=== PATIENT | male | born 1980 | race African-American/Black ===

== ENCOUNTER 2020-10-14 21:10 | Emergency (ER) | payer SELFPAY ==
[2020-10-14] MEDS ORDERED: Lidocaine 1% PF 5 ML VIAL ONE (21:28)
== END 2020-10-14 22:28 | disposition home or self-care (01) ==
LOC: ERS 21:10
DX: S63.617A Unspecified sprain of left little finger, initial encounter (principal); W26.9XXA Contact with unspecified sharp object(s), initial encounter
CPT/HCPCS: 12001

== ENCOUNTER 2020-10-22 12:04 | Day surgery (SDC) | payer OTHER ==
[2020-10-21 13:22] VITALS: BMI 29.2
[2020-10-22] MEDS ORDERED: Betamet Acet/Betamet Na Ph 30 MG/5 ML VIAL ONE (12:55)
[2020-10-22] MEDS ORDERED: Bacitracin Zinc Ointment 30 gm TUBE ONE (12:55)
[2020-10-22] MEDS ORDERED: Bupivacaine PF 0.5% 30 ML VIAL ONE (12:55)
[2020-10-22] MEDS ORDERED: Fentanyl 100 MCG/2 ML VIAL ONE ×4 (12:59→19:06)
[2020-10-22] MEDS ORDERED: Dexamethasone 20 MG/5 ML VIAL ONE (13:35)
[2020-10-22] MEDS ORDERED: Lidocaine 1% PF 5 ML VIAL ONE (13:35)
[2020-10-22] MEDS ORDERED: PROPOFOL 200 MG/20 ML VIAL ONE (13:35)
[2020-10-22] MEDS ORDERED: Ketorolac Tromethamine 30 MG/ML VIAL ONE ×2 (13:35→18:14)
[2020-10-22] MEDS ORDERED: Ondansetron PF 4 MG/2 ML Vial ONE ×2 (13:35→20:12)
[2020-10-22] MEDS ORDERED: Ondansetron HCl/PF 4 MG/2 ML Vial IVP PRN (18:17)
[2020-10-22] MEDS ORDERED: Promethazine HCl 25 MG/ML VIAL IVPB PRN (18:17)
[2020-10-22] MEDS ORDERED: HYDROmorphone 2 MG/ML VIAL SLOW IVP PRN (18:17)
[2020-10-22] MEDS ORDERED: Meperidine HCl/PF 25 MG/ML VIAL SLOW IVP PRN (18:17)
[2020-10-22] MEDS ORDERED: HYDROcodone/Acetaminophen 5/325 mg Tablet ONE (20:05)
[2020-10-22] MEDS ORDERED: Sodium Chloride For Inhalation 0.9% 3 ML NEB ONE (20:12)
[2020-10-22] MEDS ORDERED: Sodium Chloride 0.9% 10 ML ONE (20:13)
== END 2020-10-22 20:28 | disposition home or self-care (01) ==
LOC: SDC 12:04
PROVIDERS: ATTEND Orthopaedic Surgery Hand Surgery
PROC: 0LQ80ZZ Repair Left Hand Tendon, Open Approach (ICD-10-PCS; principal; 2020-10-22)
DX: S66.127A Laceration of flexor muscle, fascia and tendon of left little finger at wrist and hand level, initial encounter (principal); S64.497A Injury of digital nerve of left little finger, initial encounter; F17.200 Nicotine dependence, unspecified, uncomplicated; W26.0XXA Contact with knife, initial encounter
CPT/HCPCS: 85025; J0690; J0702; J1100; J1885; J2405; J2704; J3010; S0020; U0003; U0005

== ENCOUNTER 2020-12-24 15:02 | Outpatient (CLI) | payer OTHER | END 2020-12-24 15:03 | disposition home or self-care (01) | LOC: TBSIIMAG 15:02 | PROVIDERS: ATTEND Orthopaedic Surgery Hand Surgery | DX: M67.842 Other specified disorders of synovium, left hand (principal) ==